=== PATIENT | male | born 1940 | race Caucasian/White ===

== ENCOUNTER 2016-11-14 08:29 | Day surgery (SDC) | payer MEDICARE ==
[~2016-11-14] VITALS: Ht 172.7 cm; Wt 77.3 kg
[~2016-11-14 08:29] MED LIST: 0.9% Sodium Chloride 1,000 ML IV SCH; DILT120T3 PO; LOSA50TA37 PO; Sodium Chloride LOK Flush 10 mL Syringe IV PRN; fentaNYL-PF 50 mCg/mL 2 mL Inj IVPUSH PRN
[2016-11-14 08:49] VITALS: BP 152/97; PULSE 47; RESP 12; O2SAT 99
[2016-11-14 10:14] VITALS: BP 125/76; PULSE 33; RESP 14; O2SAT 97
--- NOTE | 2016-11-14 10:21 | ENDO ---
[address] [address] ENDOSCOPY PROCEDURE PATIENT: KARISHMA JONES : 1940 MR#: [id number] ADMIT: 11/14/2016 JOB ID: [id number] DATE: 11/14/2016 PREOPERATIVE DIAGNOSIS: Colorectal cancer screening. POSTOPERATIVE DIAGNOSIS: Sigmoid diverticulosis. OPERATION: Colonoscopy to cecum. 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 FINDINGS: He had a fair prep due to sigmoid diverticulosis and remaining fecaliths. But, the scope was advanced to the cecum. It was withdrawn over 11 minute 43 seconds. Retroflexed views of the rectum were obtained. He had sigmoid diverticulosis and hypertrophied anal papilla. No polyps, inflammatory lesions, vascular lesions, or ulcerations were identified. DESCRIPTION OF PROCEDURE: The procedure and sedation plan was discussed with the patient and nursing staff, and a procedural time-out was held. He received 3 mg of Versed and 75 mcg of fentanyl. The Olympus PCF-H109L videocolonoscope was passed transanally, advanced to the cecum, withdrawn with results as stated above. Retroflexed views of the rectum were obtained. No biopsies were taken. There were no apparent complications. There was no bleeding. RECOMMENDATIONS: Repeat colorectal cancer screening in 10 years. At that time, he will be 86 years old, and clinical judgment should be used as to whether it is necessary. ELOY
[2016-11-14 10:23] VITALS: BP 148/73; PULSE 32; RESP 14; O2SAT 97
[2016-11-14 10:32] VITALS: BP 139/76; PULSE 35; RESP 12; O2SAT 97
== END 2016-11-14 23:59 | disposition home or self-care (01) ==
LOC: END 08:29
PROVIDERS: ATTEND Surgery
DX: Z12.11 Encounter for screening for malignant neoplasm of colon (principal); K57.30 Diverticulosis of large intestine without perforation or abscess without bleeding; Z79.899 Other long term (current) drug therapy
CPT/HCPCS: 99153; G0121; G0500; J2250; J3010; J7030

== ENCOUNTER 2017-01-16 08:20 | Day surgery (SDC) | payer MEDICARE ==
[~2017-01-16] VITALS: Ht 175.3 cm; Wt 77.1 kg
[2017-01-16 09:15] VITALS: BP 153/97; PULSE 40; RESP 16; O2SAT 100
[2017-01-16 10:30] VITALS: PULSE 35; RESP 14; O2SAT 96
[2017-01-16 10:45] VITALS: BP_SYST 150; PULSE 33; RESP 14; O2SAT 97
--- NOTE | 2017-01-16 11:55 | ENDO ---
[address] [address] ENDOSCOPY PROCEDURE PATIENT: KARISHMA JONES : 1940 MR#: [id number] ADMIT: 01/16/2017 JOB ID: [id number] DATE OF SERVICE: 01/16/2017 PREOPERATIVE DIAGNOSIS(ES): Dysphagia. POSTOPERATIVE DIAGNOSIS(ES): Normal esophagogastroduodenoscopy. OPERATION: Esophagogastroduodenoscopy with biopsy. SURGEON: Donald Mansfield MD INDICATIONS: A 76-year-old man who has solid food dysphagia. After discussing options with the patient, it was elected proceed with an upper endoscopy. FINDINGS: His esophagus was normal. He had normal esophageal mucosa. The GE junction was at 43 cm from the incisors. There was a very crisp transition from normal-appearing esophageal to gastric mucosa. There was no evidence of a hiatal hernia. The retroflexed views of the GE junction showed a normal, HILL I flap valve. The stomach was easily distensible. The fundus, body, and antrum were grossly normal. The pylorus was normal. The scope was advanced to the duodenum and I believe into the proximal jejunum, and the entire proximal jejunal and duodenal mucosa appeared normal. DESCRIPTION OF PROCEDURE: The procedure and sedation plan was discussed with the patient and nursing staff, and a procedural time-out was held. He gargled viscous Xylocaine. He received 3 mg of Versed and 50 mcg of fentanyl. The Olympus GIF-H180J video endoscope was passed transorally, advanced into the proximal jejunum, and withdrawn with results as stated above. Biopsies of the antrum and of the gastroesophageal junction were obtained and submitted to Pathology. IMPRESSION: Grossly normal upper endoscopy. PLAN: An esophageal manometry will be ordered, and he will return to see me in followup.
--- NOTE | 2017-01-17 15:39 | PATH ---
SURGICAL PATHOLOGY Attending Physician:Keiry Luu CASE STATUS: Signed Out PATIENT NAME: KARISHMA JONES PID: [id number] : 1940 DATE COLLECTED:01/16/2017 18:24 SPECIMEN: 1: Stomach, Antrum, Biopsy 2: Esophagus, Biopsy CLINICAL HISTORY: 1). ANTRUM BIOPSY 2). GASTRO-ESOPHAGEAL JUNCTION BIOPSY FINAL DIAGNOSIS: 1. Antrum Biopsy: Gastric body mucosa with no diagnostic alterations. Negative for Helicobacter organisms. Negative for intestinal metaplasia. Negative for dysplasia and malignancy. 2. Gastroesophageal Junction Biopsy: Squamocolumnar mucosa with no diagnostic alterations. Negative for intestinal metaplasia. Negative for dysplasia and malignancy. ICD10 R10.13 GROSS DESCRIPTION: The specimen is received in two formalin filled containers labeled with the patient's name. 1). The specimen is sublabeled "antrum" and consists of 2 portions of tissue which aggregate to 0.6 x 0.3 x 0.2 CM. The specimen is entirely submitted in cassette 1A. 2). The specimen is sublabeled " GEJ " and consists of 4 portions of tissue which aggregate to 0.4 x 0.4 x 0.2 CM. The specimen is entirely submitted in cassette 2A. 01/16/2017 [facility] MICRO DESCRIPTION: Please see diagnosis. ICD-9 CODES: CPT CODES: 1: 14697 2: 46095 Electronically Signed Out Teresa Kohli MD [facility] Pathology [facility], [place] [address] Technical component performed at [facility], [address] [place] [address] Ave[address], [place], [address]
== END 2017-01-16 23:59 | disposition home or self-care (01) ==
LOC: END 08:20
PROVIDERS: ATTEND Surgery
DX: R13.10 Dysphagia, unspecified (principal); I10 Essential (primary) hypertension; N40.0 Benign prostatic hyperplasia without lower urinary tract symptoms; E55.9 Vitamin D deficiency, unspecified
CPT/HCPCS: 43239; 88305; 99153; G0500; J2250; J3010; J7030

== ENCOUNTER 2017-01-23 00:57 | Day surgery (SDC) | payer MEDICARE ==
[~2017-01-23 00:57] MED LIST changes: -0.9% Sodium Chloride 1,000 ML IV SCH; -Sodium Chloride LOK Flush 10 mL Syringe IV PRN; -fentaNYL-PF 50 mCg/mL 2 mL Inj IVPUSH PRN
[2017-01-23] MEDS ORDERED: Lidocaine Topical 2% 30 mL Jelly ONE (09:01)
== END 2017-01-23 23:59 | disposition home or self-care (01) ==
LOC: END 00:57
PROVIDERS: ATTEND Surgery
DX: K21.9 Gastro-esophageal reflux disease without esophagitis (principal); Z53.8 Procedure and treatment not carried out for other reasons